=== PATIENT | female | born 1990 | race Hispanic/Latino ===

== ENCOUNTER 2021-05-18 04:48 | Inpatient (IN) | payer OTHER, SELFPAY ==
[~2021-05-18 04:48] MED LIST: BUTORPHANOL 1 MG/ML INJ IV PRN; CARBOPROST TROME 250 MCG/ML IM PRN; MEPERIDINE HCL 25 MG/ML SYR IV PRN; METHYLERGONOVINE 0.2MG/ML AMP IM PRN; OXYTOCIN/LR 20 UNIT/1,000 ML BAG IV SCH; PROMETHAZINE INJ 25 MG/ML AMP IM PRN; Ringers Lactate 1,000 ML IV PRN; Ringers Lactate 1,000 ML IV SCH
[2021-05-18 06:10] LABS: Absolute Lymphocytes (CBC) 3.1 K/uL (0.7-4.9); Hematocrit 34.1 % (36.0-45.0); Lymphocytes % 29.9 % (15.3-44.8); MPV 9.3 fL (7.6-11.3); RBC Red Blood Cell Count 3.82 M/uL (3.86-4.86)
[2021-05-18 06:21] VITALS: BMI 29.7
[2021-05-18 06:59] LABS: Urine Appearance CLEAR (Clear); Urine Bilirubin NEGATIVE (Negative); Urine Blood 2+ (Negative); Urine Color DK YELLOW (Yellow); Urine Glucose NEGATIVE (Negative); Urine Protein NEGATIVE (Negative); Urine pH 6.5 (5.0-7.0)
[2021-05-18 07:09] LABS: Urine Bacteria <20 /HPF (<20); Urine Mucus 1+ /HPF (NONE SEEN)
--- NOTE | 2021-05-18 08:23 | PN ---
The patient is brisa still only every 5 minutes, but she is now 7 cm, 90% to 100% effaced, with 0 station. Doing well with mouth breathing techniques. I will check her again in another 20 to 30 minutes and see what the situation is. SUSAN/RA Voice ID: [id number] Report ID: [id number]
[2021-05-18] MEDS ORDERED: Oxycodone HCl/Acetaminophen 1 TAB TAB PO PRN ×2 (09:34)
[2021-05-18] MEDS ORDERED: DOCUSATE NA/SENNA CONC 1 TAB PO PRN (09:34)
[2021-05-18] MEDS ORDERED: IBUPROFEN 600 MG TAB PO PRN (09:34)
[2021-05-18] MEDS ORDERED: DIPHENHYDRAMINE 25 MG TAB/CAP PO PRN (09:34)
[2021-05-18] MEDS ORDERED: ACETAMINOPHEN 500 MG TAB PO PRN (09:34)
[2021-05-18] MEDS ORDERED: BISACODYL 10 MG RECTAL SUPP RC PRN (09:34)
[2021-05-18] MEDS ORDERED: OXYTOCIN/LR 20 UNIT/1,000 ML BAG IV SCH (10:00)
--- NOTE | 2021-05-18 10:08 | OP ---
Surgeon: Oumar James MD Indications: A 31-year-old 3, para 2, 39 weeks gestation, followed antepartum without compli cations. Noted to be Rh positive, immune to Rubella. Negative strep, but positive for COVID and com pletely asymptomatic on admission, 4.5 to 5 cm this morning of rupture of membranes, clear fluid. Description Of Procedure: The patient went to an active labor pattern. Used Lamaze breathing techni ques. Second stage of about 10 minutes. Spontaneous vaginal delivery of a 6 pounds 15 ounce female. Apgars 9 and 9. No episiotomy. No lacerations. Schultze delivery of the placenta was inspected a nd noted to be intact. Mildly hypotonic, 0.2 mg of Methergine IM. Estimated blood loss at this poin t 400 cc. The patient tolerated all procedures well. Final Diagnoses: Term intrauterine , 39 weeks, labor induction, vaginal delivery. Mild fito rine hypotonus. Positive COVID, completely asymptomatic. NBC/MODL Voice ID: [id number] Report ID: [id number]
[2021-05-19 01:26] LABS: RPR (Rapid Plasma Reagin) NON-REACT (NON-REACT)
[2021-05-19 07:39] VITALS: BP 123/69; TEMP 97.8
--- NOTE | 2021-05-20 12:44 | DS ---
Date of Discharge: 05/19/2021 Hospital Course: Scottie is a 31-year-old, 3, para 2, 39 weeks gestation, deliver ed of a 6-pound female, Apgars 9 and 9. No episiotomy. No laceration. Schultze delivery of the perico centa, which was inspected and noted to be intact and normal. Noted to have very mild uterine hypoto nus. Estimated blood loss 400 cc. 0.2 mg of Methergine IM as well as IV drip Pitocin and massage. T he patient has done well thereafter. Rh positive, immune to rubella, negative strep, positive COVID, absolutely asymptomatic. Overnight, vital signs have all been normal. The patient has no problems or symptoms or complaints. Will be dismissed later today to report back to my office in 6 weeks for followup to report any temperature elevation of 100 degrees or greater, severe pain, heavy bleeding, or any other type of abnormalities. Tdap administration has been suggested numerous times and again today. The patient has no complaints or problems. She will probably self-isolate for 5-10 days, has no one that she is aware that has any real risk factors. Her mother is vaccinated, but she knows th is is not full proof. Baby of course has no symptoms whatsoever nor does the . Final Diagnoses: Term intrauterine at 39 weeks, vaginal delivery, mild uterine hypotonus, COVID positive, asymptomatic. SUSAN/RA Voice ID: [id number] Report ID: [id number]
--- NOTE | 2021-05-20 12:47 | PREOPHP ---
Date of Admission: 05/18/2021 History Of Present Illness: This is a 31-year-old, 3, para 2, 39 weeks gestation for inducti on. The patient has a history of fast labor. She was 4 cm when last seen in the office. She is now 5 cm, brisa regularly, baby looked good on the monitor. Vital signs are all stable. The jose ent plans to go natural. Rupture of membranes, clear fluid. She is on light Pitocin. We will incre ase it and anticipate delivery relatively soon. Family History: Mother and father with hypertension. Grandparent with diabetes and grandmother with breast cancer. Past Medical History: The patient has had no serious medical illnesses. Past Surgical History: No surgery. Allergies: NO ALLERGIES. Medications: vitamins prior to admission. Otherwise, no other medicines. Social History: Does not smoke. Physical Examination: HEENT: Clear. Pupils equal, round, reactive to light and accommodation. Conjunctivae well perfused . No oral, lingual, buccal lesions. Chest and Lungs: Clear. Heart: Without murmurs, thrills, heaves, rubs. Breasts: Without masses on previous visits. Abdomen: Term size. Extremities: Clear without edema, cyanosis, or clubbing. Pelvic Exam: As stated, she is 5 cm, 70% effaced, -1 to almost 0 station. Assessment And Plan: She will go to the restroom shortly because she knows once she starts feeling l jeff she has to have a bowel movement, it will probably indicate she is ready for delivery. The delivery table is in the room. All was in readiness. SUSAN/RA Voice ID: [id number]
[2021-05-21 10:34] LABS: HBsAG Nonreactive (Nonreactive)
== END 2021-05-19 11:50 | disposition home or self-care (01) | DRG 805 ==
LOC: 2ND-WC 04:48
PROVIDERS: ADMIT Specialist; ATTEND Specialist
PROC: 10907ZC Drainage of Amniotic Fluid, Therapeutic from Products of Conception, Via Natural or Artificial Opening (ICD-10-PCS; principal; 2021-05-18)
PROC: 10E0XZZ Delivery of Products of Conception, External Approach (ICD-10-PCS; 2021-05-18)
PROC: 3E033VJ Introduction of Other Hormone into Peripheral Vein, Percutaneous Approach (ICD-10-PCS; 2021-05-18)
DX: O98.52 Other viral diseases complicating childbirth (principal); U07.1 COVID-19; Z37.0 Single live birth; O62.2 Other uterine inertia; Z3A.39 39 weeks gestation of pregnancy
CPT/HCPCS: 36415; 81001; 85025; 86592; 86901; 87086; 87088; 87340; J2210; J2590; J7120; U0003